=== PATIENT | female | born 2000 | race African-American/Black ===

== ENCOUNTER 2021-04-07 06:30 | Emergency (ER) | payer OTHER, SELFPAY ==
--- NOTE | ~2021-04-07 | XR_ITS ---
EXAMINATION: XR ankle RT min 3V DATE: 04/07/2021 06:59 INDICATION: Lateral right ankle pain one day post twisting injury. TECHNIQUE: Anteroposterior, oblique, mortise, and lateral views of the right ankle were obtained. COMPARISON: None. FINDINGS: Alignment is normal. No fracture. Joint spaces are well maintained. No ankle joint effusion. The so ft tissues are unremarkable. IMPRESSION: 1. Negative right ankle radiographs. Reviewed, dictated and finalized at location A.
[2021-04-07 06:38] VITALS: BP 165/89; PULSE 97; RESP 15; TEMP 36.1; O2SAT 99
--- NOTE | 2021-04-07 08:10 | ED.GENADULT ---
HPI - General Adult General Chief complaint: Extremity Injury, Lower Stated complaint: ankle injury Time Seen by Provider: 04/07/21 08:04 Source: patient Mode of arrival: ambulatory Limitations: no limitations History of Present Illness HPI narrative: 20 years old -[place] female twisted right ankle while going downhill carrying a couch yesterday. Patient denies other injuries. Patient also have pain and tenderness at the terminal phalanx of the left finger since 2014, having a hole in it which keeps leaking pus every now and then. Patient denies any fever, chills, nausea, vomiting. Related Data Allergies Allergy/AdvReac Type Severity Reaction Status Date / Time No Known Allergies Allergy Verified 04/07/21 06:41 Review of Systems Review of Systems: Narrative: CONSTITUTIONAL: Denies fever, chills, or sweats. EYES: Denies visual changes, redness, or discharge. ENT: Denies rhinorrhea, congestion, sore throat, or otalgia. CARDIOVASCULAR: Denies chest pain, palpitations, or edema. RESPIRATORY: Denies cough or dyspnea. GASTROINTESTINAL: Denies abdominal pain, nausea, vomiting, or diarrhea. GENITOURINARY: Denies dysuria or hematuria. SKIN: Denies rash or itching. MUSCULOSKELETAL: Right ankle pain NEUROLOGIC: Denies headache, numbness, or weakness. PSYCHIATRIC: Denies anxiety or depression. Exam Narrative: Exam Narrative: CONSTITUTIONAL: Denies fever, chills, or sweats. EYES: Denies visual changes, redness, or discharge. ENT: Denies rhinorrhea, congestion, sore throat, or otalgia. CARDIOVASCULAR: Denies chest pain, palpitations, or edema. RESPIRATORY: Denies cough or dyspnea. GASTROINTESTINAL: Denies abdominal pain, nausea, vomiting, or diarrhea. GENITOURINARY: Denies dysuria or hematuria. SKIN: Denies rash or itching. MUSCULOSKELETAL: Mild diffuse tenderness right ankle mainly laterally. Left finger showed a scar tissue with a hole at the middle of it at the palmar side of the distal phalanx, no swelling, diffusely tender, no discharge, no erythema. NEUROLOGIC: Denies headache, numbness, or weakness. PSYCHIATRIC: Denies anxiety or depression. Course Course Emergency Course: Stable Vital Signs Vital signs: Vital Signs Temperature 36.1 C L 04/07/21 06:38 Pulse Rate 97 04/07/21 06:38 Respiratory Rate 15 04/07/21 06:38 Blood Pressure 165/89 H 04/07/21 06:38 Pulse Oximetry 99 04/07/21 06:38 Temperature 36.1 C L 04/07/21 06:38 Pulse Rate 97 04/07/21 06:38 Respiratory Rate 15 04/07/21 06:38 Blood Pressure 165/89 H 04/07/21 06:38 Pulse Oximetry 99 04/07/21 06:38 Medical Decision Making MDM Narrative Medical decision making narrative: Right ankle sprain/strain, Left finger chronic infection with possible fistula Vital Signs Vital Signs: Vital Signs Temperature 36.1 C L 04/07/21 06:38 Pulse Rate 97 04/07/21 06:38 Respiratory Rate 15 04/07/21 06:38 Blood Pressure 165/89 H 04/07/21 06:38 Pulse Oximetry 99 04/07/21 06:38 Temperature 36.1 C L 04/07/21 06:38 Pulse Rate 97 04/07/21 06:38 Respiratory Rate 15 04/07/21 06:38 Blood Pressure 165/89 H 04/07/21 06:38 Pulse Oximetry 99 04/07/21 06:38 Critical Care Time Critical Care Time Critical Care Time: No Discharge Plan Discharge Clinical Impression: Ankle sprain and strain, Chronic wound of extremity Patient Disposition: Home, Self-Care Condition: Stable Instructions: Antibiotic Form, Ankle Sprain (ED), Chronic Wounds (ED) Additional Instructions: Return if symptoms are worsening , call Dr. Rodriguez for appointment, take Tylenol as as needed for aches and pain, continue home medications., Keep your weight off your right foot, crutches, keep right foot elevated, off work for 2 days Prescriptions: New clindamycin HCl 300 mg capsule 300 mg PO Q6H Qty: 28 RF: 0 Follow-up/Referrals: José Manuel Rodriguez MD [Physician] - 04/11/21 PHYSICIAN,MINERALOGY PROFESSOR [Primary Care Provider] - Stand Alone Fo
== END 2021-04-07 09:02 | disposition home or self-care (01) ==
PROVIDERS: Emergency Provider Emergency Medicine
DX: S93.401A Sprain of unspecified ligament of right ankle, initial encounter (principal); S96.911A Strain of unspecified muscle and tendon at ankle and foot level, right foot, initial encounter; L98.8 Other specified disorders of the skin and subcutaneous tissue; L08.9 Local infection of the skin and subcutaneous tissue, unspecified; X50.9XXA Other and unspecified overexertion or strenuous movements or postures, initial encounter
CPT/HCPCS: 73610; 99283

== ENCOUNTER 2021-04-14 10:54 | Outpatient (CLI) | payer OTHER, SELFPAY ==
--- NOTE | ~2021-04-14 | XR_ITS ---
EXAMINATION: XR finger 5th LT min 2V EXAM DATE: 04/14/2021 11:22 INDICATION: Osteomyelitis. TECHNIQUE: Right 5th finger frontal, lateral and oblique projections obtained and reviewed. There is no prior study for comparison. FINDINGS: There is oval-shaped erosion at the left 5th distal phalanx with wide zone of transition a nd swelling over the finger. Bandage is obscuring soft tissues. No other foreign bodies. There are no acute fractures identified. IMPRESSION: Sizable left 5th distal phalangeal shaft erosion consistent with osteomyelitis. Reviewed, dictated and finalized at location D. IMPRESSION: Sizable left 5th distal phalangeal shaft erosion consistent with o steomyelitis.
== END 2021-04-14 10:55 | disposition home or self-care (01) ==
LOC: ANHIMG 11:01
PROVIDERS: Visit Provider Plastic Surgery
DX: M86.642 Other chronic osteomyelitis, left hand (principal)
CPT/HCPCS: 73140

== ENCOUNTER 2024-05-25 15:52 | Emergency (ER) | payer OTHER, SELFPAY ==
--- NOTE | ~2024-05-25 | CT_ITS ---
EXAMINATION: CT abdomen pelvis w con DATE: 05/25/2024 17:58 INDICATION: Generalized abdominal pain, nausea and vomiting TECHNIQUE: Computed tomography (CT) of the abdomen and pelvis was performed with 100 CC Omnipaque 350 intravenous contrast. Automated exposure control and iterative reconstruction technique were employe d. Exam dose: 1480.77 mGy-cm total exam DLP. COMPARISON: None. FINDINGS: The lung bases are clear of infiltrate or consolidation. Heart size is within normal range. No pericardial or pleural effusion. The liver, gallbladder, bile ducts, pancreas, pancreatic duct and spleen are unremarkable. Normal morphology of the adrenal glands. Probable 5 mm right renal cyst. The kidneys are otherwise unremarkable. No urinary tract calculus or hydroureteronephrosis. The urinary bladder is evacuated and not optimally evaluated. The uterus and adnexal areas are unremarkable. Normal caliber of the abdominal aorta. No intraperitoneal or retroperitoneal or pelvic mass lesion or adenopathy or ascites. Small sliding hiatal hernia. Normal appendix. Diverticulosis of the sigmoid colon; no CT evidence of diverticulitis. There is submucosal fat infiltration of the colon which may be an indication of chronic inflammatory change. No bowel obstruction or intraperitoneal free air. Small fat-containing umbilical hernia. Included skeletal structures are unremarkable. IMPRESSION: Small sliding hiatal hernia Diverticulosis of sigmoid colon; no evidence of diverticulitis Some mucosal fatty infiltration throughout the colon, suggesting chronic inflammatory change Normal appendix 5 mm right renal cyst Reviewed, dictated and finalized at Location [facility]. Reviewed, dictated and finalized at location A. IMPRESSION: Small sliding hiatal hernia Diverticulosis of sigmoid colon; no evidence of diverticulitis Some mucosal fatty infiltration throughout the colon, suggesting chronic inflam matory change Normal appendix 5 mm right renal cyst
[2024-05-25 15:53] VITALS: BP 95/53; PULSE 67; RESP 20; TEMP 36.6; O2SAT 100
--- NOTE | 2024-05-25 16:12 | ED.GENADULT ---
HPI - General Adult General Chief complaint: Nausea/Vomiting/Diarrhea Stated complaint: N/V, light headed, chills, chest hurting Time Seen by Provider: 05/25/24 16:00 History of Present Illness HPI narrative: Patient 23-year-old female presents emergency department with chief complaint of nausea vomiting lightheadedness abdominal pain and chest discomfort. The patient also reports she has had diarrhea. Patient reports symptoms started last night patient reports she has diffuse pain throughout her abdomen Related Data Allergies Allergy/AdvReac Type Severity Reaction Status Date / Time No Known Allergies Allergy Verified 05/25/24 16:25 Review of Systems Review of Systems: A 10 system review of systems was completed on the patient and is negative except for what is stated in the HPI. Nursing and ancillary documentation was reviewed. Exam Narrative: GENERAL: Well-appearing, well-nourished, and in no acute distress. HEAD: Normocephalic, atraumatic. EYES: PERRLA and EOMI. ENT: Nares clear, no rhinorrhea or epistaxis. Mucous membranes moist. NECK: Supple. CHEST: Clear to auscultation. No respiratory distress. HEART: Regular rate and rhythm. No murmur heard. Normal peripheral pulses. ABDOMEN: Soft, diffusely tender to palpation throughout the abdomen, nondistended, normal active bowel sounds. EXTREMITIES: Normal range of motion. No edema. SKIN: Warm, dry, no rash. NEURO: No focal deficits. Alert and oriented x3. PSYCH: Normal mood and affect. Course Vital Signs Vital signs: Vital Signs Temperature 36.6 C 05/25/24 15:53 Pulse Rate 67 05/25/24 15:53 Respiratory Rate 20 05/25/24 15:53 Blood Pressure 95/53 L 05/25/24 15:53 Pulse Oximetry 100 05/25/24 15:53 Oxygen Delivery Room Air 05/25/24 15:53 Temperature 36.6 C 05/25/24 15:53 Pulse Rate 72 05/25/24 18:25 Respiratory Rate 16 05/25/24 18:25 Blood Pressure 134/72 05/25/24 18:25 Pulse Oximetry 99 05/25/24 18:25 Oxygen Delivery Room Air 05/25/24 15:53 Medical Decision Making [facility] Narrative Medical decision making narrative: Differential diagnosis includes UTI, gastroenteritis, colitis, diverticulitis CT scan of the abdomen pelvis was obtained showed Small sliding hiatal hernia Diverticulosis of sigmoid colon; no evidence of diverticulitis Some mucosal fatty infiltration throughout the colon, suggesting chronic inflammatory change Normal appendix 5 mm right renal cyst White blood cell count slightly elevated at 15.2 electrolytes were within normal limits urinalysis showed 3+ ketone greater than 100 red blood cells and 11-20 white blood cells 4+ bacteria and test was negative Patient is feeling much better after receiving IV fluids and antiemetics. Patient will be discharged home on Cipro and Flagyl and will be given a prescription for Zofran. Vital Signs Vital Signs: Vital Signs Temperature 36.6 C 05/25/24 15:53 Pulse Rate 67 05/25/24 15:53 Respiratory Rate 20 05/25/24 15:53 Blood Pressure 95/53 L 05/25/24 15:53 Pulse Oximetry 100 05/25/24 15:53 Oxygen Delivery Room Air 05/25/24 15:53 Temperature 36.6 C 05/25/24 15:53 Pulse Rate 72 05/25/24 18:25 Respiratory Rate 16 05/25/24 18:25 Blood Pressure 134/72 05/25/24 18:25 Pulse Oximetry 99 05/25/24 18:25 Oxygen Delivery Room Air 05/25/24 15:53 Lab Data 05/25/24 16:42 05/25/24 16:42 Labs: Lab Results 05/25/24 05/25/24 05/25/24 Range/Units 16:08 16:42 17:36 WBC 15.2 H (4.5-10.0) K/mm3 RBC 4.77 (4.2-5.4) M/mm3 Hgb 12.4 (12.0-15.0) g/dL Hct 38.7 (37.0-47.0) % MCV 81.1 (80-100) fl MCH 26.0 (26-34) pg MCHC 32.0 (32-36) g/dl RDW 16.4 H (11.5-14.5) % Plt Count 362 (150-375) k/mm3 MPV 9.7 (7.4-10.4) fl Immature Gran % (Auto) 0.4 (0-0.5) % Neut % (Auto) 91.3 H (45.5-73.1) % Lymph % (Auto) 6.6 L (18.3-4
[2024-05-25 16:18] VITALS: BP 141/48; PULSE 71; RESP 22; O2SAT 100
--- NOTE | 2024-05-25 16:18 | ECG_ITS ---
Test Date: 2024-05-25 17:06:52 Measurements Intervals [place] Rate: 59 P: 48 MO: 149 QRS: 11 QRSD: 92 T: -11 QT: 491 QTc: 490 Interpretive Statements SINUS BRADYCARDIA WITH SINUS ARRHYTHMIA MINIMAL Q WAVES- HIGH LATERAL LEADS BORDERLINE T WAVE ABNORMALITY- INFERIOR LEADS PROLONGED QT INTERVAL ABNORMAL ECG No previous ECG available for comparison Electronically Signed On 05-25-2024 19:59:51 CDT by Marcelo Crabtree D.O.
--- NOTE | 2024-05-25 16:28 | PC.NURSE ---
Pt states she is unable to urinate at this time but will provide a urine sample when able.
[2024-05-25] MEDS: SODIUM CHLORIDE 0.9% IV 1,000 ML 999 ML IV CONT (16:30)
[2024-05-25] MEDS: PROCHLORPERAZINE EDISYLATE 10 MG/2 ML VIAL IV PUSH (16:31)
[2024-05-25] MEDS: diphenhydrAMINE HCl INJ 50 MG/ML VIAL 25 MG IV PUSH (16:31)
[2024-05-25] MEDS: MORPHINE SULFATE (*CRX) 4 MG/ML INJ IV PUSH (16:32)
[2024-05-25 16:49] LABS: Basophils Percent Auto 0.2 % (0.2-1.2); Hematocrit 38.7 % (37.0-47.0); Hemoglobin 12.4 g/dL (12.0-15.0); Immature Granulocyte Absolute 0.06 K/mm3 (0.00-0.031); Immature Granulocyte Percent A 0.4 % (0-0.5); Lymphocytes Absolute Auto 1.01 K/mm3 (0.9-3.2); Lymphocytes Percent Auto 6.6 % (18.3-44.2); Mean Corpuscular Volume 81.1 fl (80-100); Mean Platelet Volume 9.7 fl (7.4-10.4); Monocytes Absolute Auto 0.2 K/mm3 (0.1-0.6); Monocytes Percent Auto 1.5 % (2.6-8.5); Neutrophils Absolute Auto 13.9 K/mm3 (1.3-6.7); Neutrophils Percent Auto 91.3 % (45.5-73.1); Platelet Count Result 362 k/mm3 (150-375); Red Blood Count 4.77 M/mm3 (4.2-5.4); Red Cell Distribution Width 16.4 % (11.5-14.5); White Blood Count 15.2 K/mm3 (4.5-10.0)
[2024-05-25 16:58] LABS: Alanine Aminotransferase 23 U/L (6-35); Albumin Level 4.6 g/dL (3.5-5.1); Alkaline Phosphatase 91 U/L (38-126); Anion Gap 13 mmol/L (4-12); Aspartate Amino Transferase 26 U/L (14-36); Bilirubin,Total 0.4 mg/dL (0.2-1.3); Blood Urea Nitrogen 8 mg/dL (7-17); Calcium 8.9 mg/dL (8.4-10.2); Carbon Dioxide 17 mmol/L (22-30); Chloride 110 mmol/L (98-107); Estimated CRCL calculation 176 ml/min; Estimated Glomerular Filt Rate > 60; Glucose 156 mg/dL (65-110); Lipase 34 U/L (23-300); Sodium 140 mmol/L (137-145)
[2024-05-25 17:41] LABS: BEDSIDEPREGUCG Negative (Negative)
[2024-05-25 17:58] LABS: Add Urine Microscopic? YES; Appearance Urine Cloudy (Clear); Bacteria Urine 4+ /hpf; Bilirubin Urine Negative (Negative); Blood Urine 3+ (Negative); Color Urine Dark Yellow (Yellow); Glucose Urine UA Negative (Negative); Ketones Urine 3+ mg/dL (Negative); Leukocyte Esterase Ur Trace LEU/UL (Negative); Mucus Urine Present /lpf; Need Manual Microscopic Reviewed; Nitrate Urine Negative (Negative); Non Pathogenic Casts 0-2; Protein Urine 2+ mg/dL (Negative); RBC Urine >100 /hpf (0-2); Specific Grav Ur 1.031 (1.001-1.035); Squamous Epithelial Cell Urine Moderate /hpf (Few); pH Urine 7.5 (5.0-9.0)
[2024-05-25 18:25] VITALS: BP 134/72; PULSE 72; RESP 16; O2SAT 99
[2024-05-25 19:18] VITALS: BP 162/96; PULSE 88; RESP 15; O2SAT 100
== END 2024-05-25 19:20 | disposition home or self-care (01) ==
PROVIDERS: Emergency Provider Emergency Medicine
DX: K52.9 Noninfective gastroenteritis and colitis, unspecified (principal); N39.0 Urinary tract infection, site not specified
CPT/HCPCS: 36415; 74177; 80053; 81001; 81025; 83690; 85025; 87086; 93005; 96361; 96374; 96375; 99284; J0780; J1200; J2270; J7030; Q9967